=== PATIENT | female | born 1945 | race Caucasian/White ===

== ENCOUNTER → 2016-06-12 | Outpatient (CLI) | payer OTHER, MEDICARE ==
[2015-07-11 14:42] VITALS: BP 122/63
[~2016-06-12] MED LIST: ACET-704 PO; ASPI81TA50 PO; FURO20TA3 PO; GABA600T2 PO; INSU100V13 SQ; INSU100V31 SQ; IOHEXOL 300 MG/ML 75 ML VIAL. IV ONE; LISI2.5T PO; MECL25TA3 PO; MULT1TAB52 PO; NITR0.4T6 SL; OMEG1CAP38 PO; OMEP20TA PO; SIMV40TA3 PO; SULF1TAB24 PO; TIZA4TAB PO; VIT1TABL32 PO
[2016-06-12 14:06] LABS: CALCIUM 9.2 mg/dL (8.5-10.1); CREATININE 1.5 mg/dL (0.6-1.0); GFR 34.1; POTASSIUM 4.5 mmol/L (3.5-5.1)
== END | disposition home or self-care (01) ==
LOC: CT 13:11
PROVIDERS: ATTEND Internal Medicine Cardiovascular Disease
DX: I73.9 Peripheral vascular disease, unspecified (principal)
CPT/HCPCS: 36415; 80048; Q9967

== ENCOUNTER → 2016-06-16 | Outpatient (CLI) | payer OTHER, MEDICARE ==
[2015-07-11 14:42] VITALS: BP 122/63
[~2016-06-16] MED LIST changes: +SODIUM BICARBONATE IVF 150 MEQ in IV STERILE WATER 1,000 ML IV ONE
--- NOTE | 2016-06-16 14:37 | RAD ---
CTA of the abdomen, pelvis and both lower extremities, 06/16/2016: History: Nonhealing right foot wound Multidetector CT imaging was performed from the lower abdomen down through the feet following an IV bolus injection of iodinated contrast material. Multiplanar reconstructions were produced as well as 3-D MIP images of the major arteries. There is mild calcific plaquing of the distal abdominal aorta and common iliac arteries without evidence of aneurysm or high-grade stenosis. The common, internal and external iliac arteries are widely patent. There is mild calcific plaquing at the right common femoral artery level. There is more extensive atherosclerotic plaquing in the right superficial femoral and popliteal arteries. There is moderate focal stenosis of the proximal right superficial femoral artery and in the proximal right popliteal artery. In the right lower leg there are moderate scattered plaques with occlusion of the anterior tibial artery at the mid to lower calf level. The posterior tibial artery is patent down through the ankle level. The peroneal artery is patent but very tiny distally. On the left, there is mild calcific plaquing of the common femoral artery level. There are moderate scattered plaques in the superficial femoral and popliteal arteries. There is mild narrowing of the left superficial femoral and popliteal arteries at multiple levels without evidence of high-grade focal stenosis. There are scattered plaques in the lower leg arteries. The left anterior tibial artery is patent down to the ankle level. The dorsalis pedis artery is not well delineated. The left tibioperoneal trunk is poorly defined with high-grade stenosis versus occlusion. The posterior tibial artery in the left lower leg is occluded. The left peroneal artery also appears to be occluded. Incidental CT findings include the presence of moderate degenerative change at both knees with bilateral joint effusions. There is moderate multilevel degenerative change in the lower lumbar spine. There are mild scattered superficial varicosities in both lower legs. IMPRESSION: 1. Moderate generalized atherosclerotic plaquing. 2. No significant iliac or common femoral occlusive disease. 3. Mild to moderate scattered stenoses in the superficial femoral and popliteal arteries, worse on the right. 4. More extensive arterial occlusive disease in both lower legs with anterior tibial artery occlusion on the right and posterior tibial and peroneal artery occlusions on the left. PQRS Compliance Statement: One or more of the following individualized dose reduction techniques were utilized for this examination: 1. Automated exposure control 2. Adjustment of the mA and/or kV according to patient size 3. Use of iterative reconstruction technique
== END | disposition home or self-care (01) ==
LOC: CT 10:43
PROVIDERS: ATTEND Internal Medicine Cardiovascular Disease
DX: I35.1 Nonrheumatic aortic (valve) insufficiency (principal); I73.9 Peripheral vascular disease, unspecified; I77.1 Stricture of artery; I70.8 Atherosclerosis of other arteries; S91.301A Unspecified open wound, right foot, initial encounter; X58.XXXA Exposure to other specified factors, initial encounter; Y93.89 Activity, other specified; Y92.89 Other specified places as the place of occurrence of the external cause; Y99.8 Other external cause status
CPT/HCPCS: 75635; Q9967

== ENCOUNTER → 2017-11-20 | Outpatient (CLI) | payer OTHER, MEDICARE ==
[2015-07-11 14:42] VITALS: BP 122/63
[~2017-11-20] MED LIST changes: -IOHEXOL 300 MG/ML 75 ML VIAL. IV ONE; +NITR0.4T22 SL; -NITR0.4T6 SL; -OMEP20TA PO; +OMEP20TA8 PO; -SODIUM BICARBONATE IVF 150 MEQ in IV STERILE WATER 1,000 ML IV ONE
[2017-11-20 16:36] LABS: ALBUMIN 3.6 g/dL (3.4-5.0); ALBUMIN/GLOBULIN RATIO 0.9 (1.0-1.7); CALCIUM 9.9 mg/dL (8.5-10.1); CREATININE 1.5 mg/dL (0.6-1.0); POTASSIUM 4.8 mmol/L (3.5-5.1); TOTAL BILIRUBIN 0.7 mg/dL (0.2-1.0); TOTAL PROTEIN 7.6 g/dL (6.4-8.2)
== END | disposition home or self-care (01) ==
LOC: LAB 14:43
PROVIDERS: ATTEND Nurse Practitioner
DX: E78.5 Hyperlipidemia, unspecified (principal); I10 Essential (primary) hypertension; E11.9 Type 2 diabetes mellitus without complications; K21.9 Gastro-esophageal reflux disease without esophagitis; Z90.49 Acquired absence of other specified parts of digestive tract; Z90.710 Acquired absence of both cervix and uterus
CPT/HCPCS: 36415; 80053; 80061; 83036

== ENCOUNTER → 2018-01-05 | Outpatient (CLI) | payer OTHER, MEDICARE ==
[2015-07-11 14:42] VITALS: BP 122/63
[2018-01-05 12:12] LABS: ALBUMIN 3.5 g/dL (3.4-5.0); ALBUMIN/GLOBULIN RATIO 0.8 (1.0-1.7); CALCIUM 9.7 mg/dL (8.5-10.1); CREATININE 1.7 mg/dL (0.6-1.0); GFR 29.5; POTASSIUM 4.4 mmol/L (3.5-5.1); TOTAL BILIRUBIN 0.5 mg/dL (0.2-1.0); TOTAL PROTEIN 7.7 g/dL (6.4-8.2)
== END | disposition home or self-care (01) ==
LOC: LAB 11:33
PROVIDERS: ATTEND Specialist
DX: E78.00 Pure hypercholesterolemia, unspecified (principal)
CPT/HCPCS: 36415; 80053; 80061

== ENCOUNTER → 2018-01-13 | Outpatient (CLI) | payer OTHER, MEDICARE ==
[2015-07-11 14:42] VITALS: BP 122/63
[2018-01-13 15:32] LABS: CALCIUM 9.2 mg/dL (8.5-10.1); CREATININE 1.4 mg/dL (0.6-1.0); GFR 36.9; POTASSIUM 4.6 mmol/L (3.5-5.1)
== END | disposition home or self-care (01) ==
LOC: LAB 14:33
PROVIDERS: ATTEND Specialist
DX: E11.22 Type 2 diabetes mellitus with diabetic chronic kidney disease (principal); I12.9 Hypertensive chronic kidney disease with stage 1 through stage 4 chronic kidney disease, or unspecified chronic kidney disease; N18.3 Chronic kidney disease, stage 3 (moderate); Z79.4 Long term (current) use of insulin
CPT/HCPCS: 36415; 80048

== ENCOUNTER → 2018-02-19 | Outpatient (CLI) | payer OTHER, MEDICARE ==
[2015-07-11 14:42] VITALS: BP 122/63
== END | disposition home or self-care (01) ==
LOC: LAB 12:37
PROVIDERS: ATTEND Specialist
DX: E78.00 Pure hypercholesterolemia, unspecified (principal)
CPT/HCPCS: 80061

== ENCOUNTER → 2018-08-18 | Outpatient (CLI) | payer OTHER, MEDICARE ==
[2015-07-11 14:42] VITALS: BP 122/63
[~2018-08-18] MED LIST changes: -GABA600T2 PO; +GABA600T7 PO
--- NOTE | 2018-08-18 15:25 | RAD ---
Chest, 2 views, 08/18/2018: HISTORY: Congestive heart failure, heart and renal disease Comparison is made to a study from 07/11/2015. The heart is at the upper limits of normal in size. Coronary artery stents are evident. The pulmonary vascularity is normal. No pulmonary infiltrate is seen. There is no evidence of pleural fluid. There is accentuation of the normal thoracic kyphosis with multilevel degenerative change. IMPRESSION: No acute cardiopulmonary abnormality is detected. Electronically signed by: Tai Perkins MD (08/18/2018 3:22 PM) [facility]
== END | disposition home or self-care (01) ==
LOC: RAD 12:40
PROVIDERS: ATTEND Internal Medicine Cardiovascular Disease
DX: I13.0 Hypertensive heart and chronic kidney disease with heart failure and stage 1 through stage 4 chronic kidney disease, or unspecified chronic kidney disease (principal); N18.3 Chronic kidney disease, stage 3 (moderate); I50.9 Heart failure, unspecified; M47.894 Other spondylosis, thoracic region; M40.294 Other kyphosis, thoracic region; Z95.5 Presence of coronary angioplasty implant and graft
CPT/HCPCS: 71046

== ENCOUNTER 2018-09-10 09:15 | Inpatient (IN) | payer OTHER, MEDICARE ==
[~2018-09-10] VITALS: Ht 162.6 cm; Wt 86.8 kg
--- NOTE | 2018-09-10 09:40 | PHYS DOC ---
Past History Past Medical History: Anxiety, CAD, Constipation, Diabetes, GERD, Hypertension, MA, Renal Disease Past Surgical History: No Surgical History, Appendectomy, Cholecystectomy, Hysterectomy Alcohol Use: None Drug Use: None Adult General Chief Complaint Chief Complaint: CHEST PAIN HPI HPI Patient is a 73-year-old female who presents with report of dizziness and chest discomfort. Patient states chest discomfort started yesterday and has been intermittent since onset. She states is not actually of pain but states it feels like pressure in her chest. She rates it at a 3 out of 10. She denies any nausea, vomiting or diaphoresis. Patient does indicate that she is also had some dizziness that she states that makes her feel like she is going to fall over when she stands up. Patient does indicate that she has had 2 have some assista nce when she gets up and walks starting this morning. She states that she did have some dizziness yesterday but took a meclizine and was able to get around okay. She states that this morning symptoms are worse. She denies any headache or lateralizing weakness.[] Review of Systems Review of Systems Constitutional: Denies fever or chills [] Respiratory: Denies cough or shortness of breath [] Cardiovascular: No additional information not addressed in HPI [] GI: Denies abdominal pain, nausea, vomiting or diarrhea [] Integument: Denies rash or skin lesions [] Neurologic: Denies headache, focal weakness or sensory changes. Complains of dizziness. [] All other systems were reviewed and found to be within normal limits, except as documented in this note. Current Medications Current Medications Current Medications Medications (Trade) Dose Ordered Sig/Aguilar Start Time Stop Time Status Last Admin Dose Admin Meclizine HCl (Antivert) 25 mg PRN Q6HRS PRN 09/10/18 09:45 Allergies Allergies Allergies Coded Allergies Type Severity Reaction Last Updated Verified erythromycin base Allergy Intermediate Nausea 06/16/16 Yes Physical Exam Physical Exam Constitutional: Well developed, well nourished, no acute distress, non-toxic appearance. [] HENT: Normocephalic, atraumatic, bilateral external ears normal, oropharynx moist, no oral exudates, nose normal. [] Eyes: PERRLA, EOMI, conjunctiva normal, no discharge. [] Neck: Normal range of motion, no tenderness, supple, no stridor. [] Cardiovascular: Mildly bradycardic rate with regular rhythm[] Lungs & Thorax: Bilateral breath sounds clear to auscultation [] Abdomen: Bowel sounds normal, soft, no tenderness. [] Skin: Warm, dry, no erythema, no rash. [] Extremities: No tenderness, no cyanosis, no clubbing, ROM intact. [] Neurologic: Alert and oriented X 3, no focal deficits noted. [] EKG EKG EKG demonstrates sinus bradycardia with a rate of 51.[] Radiology/Procedures Radiology/Procedures [] Impressions: PROCEDURE: PORTABLE CHEST 1V Portable chest, 09/10/2018: HISTORY: Chest pain Comparison is made to a study from 08/18/2018. The heart is at the upper limits of normal in size. The depth of inspiration is suboptimal. No pulmonary consolidation is seen. There is no evidence of pleural fluid. IMPRESSION: 1. Borderline cardiomegaly. 2. Suboptimal depth of inspiration. Electronically signed by: Tai Perkins MD (09/10/2018 9:45 AM) [facility] PROCEDURE: CT HEAD WO CONTRAST CT HEAD WO CONTRAST Indication: Dizziness. Exposure: One or more of the following individualized dose reduction techniques were utilized for this examination: 1. Automated exposure control 2. Adjustment of the mA and/or kV according to patient size 3. Use of iterative reconstruction technique. Technique: Standard imaging without intravenous contrast. No evidence of acute intracranial hemorrhage, mass effect, midline shift or abnormal extra-axial fluid collection. Cuellar-white matter distinction is intact. Ventricles and sulci appear symmetric. Orbits unremarkable. No evidence of notable scalp swelling. Visualized sinuses are clear. No evidence of acute skull abnormality. IMPRESSION: No evidence of acute intracranial hemorrhage or mass effect. Electronically signed by: Edwin Manuel MD (09/10/2018 11:15 AM) [id number] DICTATED AND SIGNED BY: EDWIN MANUEL MD DATE: 09/10/18 1115 Course & Med Decision Making Course & Med Decision Making Pertinent Labs and Imaging studies reviewed. (See chart for details) [] Dragon Disclaimer Dragon Disclaimer This electronic medical record was generated, in whole or in part, using a voice recognition dictation system. Departure Departure: Impression: Primary Impression: Chest pain Additional Impression: Dizziness Disposition: 09 ADMITTED INPATIENT Admitting Physician: My Sorenson Condition: GOOD Referrals: JIE SMITH (PCP) Problem Qualifiers Primary Impression: Chest pain Chest pain type: unspecified Qualified Codes: R07.9 - Chest pain, unspecified HARI STILES Jr. DO Sep 10, 2018 09:39
[2018-09-10] MEDS ORDERED: MECLIZINE 12.5 MG TABLET. PO PRN (09:45)
--- NOTE | 2018-09-10 09:48 | RAD ---
Portable chest, 09/10/2018: HISTORY: Chest pain Comparison is made to a study from 08/18/2018. The heart is at the upper limits of normal in size. The depth of inspiration is suboptimal. No pulmonary consolidation is seen. There is no evidence of pleural fluid. IMPRESSION: 1. Borderline cardiomegaly. 2. Suboptimal depth of inspiration. Electronically signed by: Tai Perkins MD (09/10/2018 9:45 AM) [facility]
[2018-09-10 10:02] LABS: BASO # 0.1 x10^3/uL (0.0-0.2); BASO % 1 % (0-3); EOS # 0.2 x10^3/uL (0.0-0.7); EOS % 4 % (0-3); HEMATOCRIT 45.4 % (36.0-47.0); HEMOGLOBIN 14.9 g/dL (12.0-15.5); LYMPH # 1.2 x10^3/uL (1.0-4.8); LYMPH % 27 % (24-48); MEAN CORPUSCULAR HEMOGLOBIN 30 pg (25-35); MEAN CORPUSCULAR HGB CONC 33 g/dL (31-37); MEAN CORPUSCULAR VOLUME 92 fL (79-100); MONO # 0.5 x10^3/uL (0.0-1.1); MONO % 10 % (0-9); NEUT # 2.7 x10^3uL (1.8-7.7); NEUT % 58 % (31-73); PLATELET COUNT 153 x10^3/uL (140-400); RED BLOOD COUNT 4.95 x10^6/uL (3.50-5.40); RED CELL DISTRIBUTION WIDTH 13.8 % (11.5-14.5); WHITE BLOOD COUNT 4.7 x10^3/uL (4.0-11.0)
[2018-09-10 10:17] LABS: ALBUMIN 3.1 g/dL (3.4-5.0); ALBUMIN/GLOBULIN RATIO 0.8 (1.0-1.7); CALCIUM 9.3 mg/dL (8.5-10.1); CREATININE 1.4 mg/dL (0.6-1.0); GFR 36.8; MAGNESIUM 2.1 mg/dL (1.8-2.4); POTASSIUM 4.5 mmol/L (3.5-5.1); TOTAL BILIRUBIN 0.4 mg/dL (0.2-1.0); TOTAL PROTEIN 6.9 g/dL (6.4-8.2)
--- NOTE | 2018-09-10 10:26 | EKG ---
[address] [address] Test Date: 2018-09-10 Test Time: 09:24:17 Pat Name: MARLEN SHIN Department: Room: Gender: F Rehabilitation Specialist: : [id number] Requested By: HARI STILES Order Number: [id number] Reading MD: Measurements Intervals [place] Rate: 51 P: 34 [place]: 174 QRS: -16 QRSD: 86 T: 18 QT: 474 QTc: 439 Interpretive Statements SINUS RHYTHM LEFTWARD AXIS QRS(T) CONTOUR ABNORMALITY CONSIDER ANTEROSEPTAL MYOCARDIAL DAMAGE POSSIBLY ABNORMAL ECG RI6.01 No previous ECG available for comparison
--- NOTE | 2018-09-10 11:17 | RAD ---
CT HEAD WO CONTRAST Indication: Dizziness. Exposure: One or more of the following individualized dose reduction techniques were utilized for this examination: 1. Automated exposure control 2. Adjustment of the mA and/or kV according to patient size 3. Use of iterative reconstruction technique. Technique: Standard imaging without intravenous contrast. No evidence of acute intracranial hemorrhage, mass effect, midline shift or abnormal extra-axial fluid collection. Cuellar-white matter distinction is intact. Ventricles and sulci appear symmetric. Orbits unremarkable. No evidence of notable scalp swelling. Visualized sinuses are clear. No evidence of acute skull abnormality. IMPRESSION: No evidence of acute intracranial hemorrhage or mass effect. Electronically signed by: Edwin Manuel MD (09/10/2018 11:15 AM) [id number]
[2018-09-10] MEDS ORDERED: MORPHINE SULFATE 2 MG/ML DISP.SYRIN. IV PRN (11:30)
[2018-09-10] MEDS ORDERED: ONDANSETRON PF 4 MG/2 ML VIAL. IV PRN (11:30)
[2018-09-10] MEDS ORDERED: ATOR40TA59 PO (11:43)
[2018-09-10] MEDS ORDERED: INSU100V37 SQ (11:43)
[2018-09-10] MEDS ORDERED: METO-239 PO (11:43)
[2018-09-10] MEDS ORDERED: INSU100V11 IJ (11:43)
[2018-09-10 13:05] VITALS: BP 152/71
--- NOTE | 2018-09-10 13:18 | NUR ---
Patient Gaby Johnson admitted to [facility]. Pt alert and oriented, complains of dizziness and tinnitus for about 2-3 months, dizziness worsening. Had difficulty getting up out of bed at home. Complains of chest pain for about 2-3 weeks, had stress test about 3 weeks ago through [facility] and was ok, per pt. Will request records. [facility].
--- NOTE | 2018-09-10 13:43 | NUR ---
Cardiology consult called in to Tayler BROWNE.
[2018-09-10] MEDS: GABAPENTIN 300 MG CAPSULE. PO SCH ×2 (13:51→20:40)
[2018-09-10] MEDS ORDERED: ACETAMINOPHEN/CODEINE 300/30MG TABLET PO PRN (14:00)
[2018-09-10] MEDS ORDERED: GABAPENTIN 400 MG CAPSULE. PO SCH (14:00)
[2018-09-10 15:20] VITALS: BP 152/71
[2018-09-10 15:21] VITALS: BP_SYST 153; BP_SYST 164; BP_DIAS 74; BP_DIAS 78
[2018-09-10] MEDS ORDERED: POLYETHYLENE GLYCOL 3350 17 GM PACKET. PO PRN (15:30)
--- NOTE | 2018-09-10 17:04 | HP ---
ADMIT DATE: HISTORY OF PRESENT ILLNESS: The patient is a 73-year-old female patient who came to the Emergency Room complaining of being dizzy and chest discomfort. She stated that her chest discomfort started yesterday and has been intermittent since onset. She states that she is not actually in pain, feels like pressure in her chest that she rates about at 3/10 in severity. She denies any nausea, vomiting or diaphoresis. She had had also some dizziness that feels like as if she is going to fall over when she stands up. She stated that she has to have some assistance when she gets up and walks starting this morning. She stated that she did have some dizziness yesterday, took meclizine and was able to get around okay; however, her symptoms have worsened this morning. She denied things are spinning around. Denied any nausea or vomiting. Denied any fall. She does have tinnitus in both ears. She apparently had had a stress test done about [address] Alvarez' office and apparently was normal. She was extensively investigated in the Emergency Room and she has had a CT scan of the head which showed that there is no evidence of acute intracranial hemorrhage, mass effect, midline shift or abnormal extraaxial fluid collection. Cuellar-white matter distinction is intact. Ventricles and sulci appear symmetric. Orbits unremarkable. No evidence of notable scalp swelling. Visualized sinuses are clear. No evidence of acute skull abnormality. No evidence of acute intracranial hemorrhage or mass effect. Has had lab work that was essentially unremarkable. Her D-dimer was high at 0.72, however, her kidney function is abnormal with a creatinine of 1.4 and estimated GFR was 36.8. Her chest x-ray showed borderline cardiomegaly which showed no pulmonary consolidation, no evidence of pleural fluid or pneumothorax. The patient was admitted for further evaluation and treatment. We did consult the safety person as well as the neurologist. PAST MEDICAL HISTORY: Significant for bronchial asthma, type 2 diabetes mellitus, hypertension, hyperlipidemia, coronary artery disease, status post myocardial infarction for which she has a PCI with stent deployment x 3. She has stage 3 chronic kidney disease, generalized osteoarthritis. PAST SURGICAL HISTORY: Significant for bilateral cataract extraction, appendectomy, total abdominal hysterectomy, bilateral salpingo-oophorectomy, cholecystectomy, PCI with stent deployment, colonoscopy and polypectomy. ALLERGIES: SHE IS ALLERGIC TO ERYTHROMYCIN. MEDICATIONS: She is currently on following medications: She is on tizanidine 4 mg every 8 hours, atorvastatin calcium 40 mg at bedtime, omega-3 fatty acid or fish oil 1000 mg twice a day, metoprolol succinate 12.5 mg daily. She is on lisinopril 1.25 mg daily, aspirin 81 mg once a day, acetaminophen with codeine 1-2 tablets twice a day. She is on gabapentin 600 mg 3 times a day, furosemide 20 mg daily, omeprazole 20 mg daily. She is on Tresiba 10 units subcutaneous daily. She is on Novolin R 10 units daily. FAMILY HISTORY: She has 2 brothers and 1 sister, younger and healthy. Her father at age of 69 because of alcoholism and type 2 diabetes. Mother at the age of 87 because of pneumonia. SOCIAL HISTORY: She is , has 2 daughters. She never smoked, does not drink alcohol. She used to works as a real property evaluator. REVIEW OF SYSTEMS: The patient has had bilateral cataract extraction, but denied any glaucoma or macular degeneration. Denied any earache. She does have tinnitus, but denied any sensorineural deafness. Denied any nosebleeds. She has stuffy nose, but denied any postnasal drip. Denied any sore throat, sore tongue, toothache, hoarseness of voice or difficulty swallowing. Denied any nausea, vomiting, diarrhea, but has severe constipation. Denied any hematemesis, melena or hematochezia. Denied any dysuria, frequency or hematuria. Denied any chest pain, shortness of breath, orthopnea, paroxysmal nocturnal dyspnea. Denied any cough, phlegm or hemoptysis. Denied any chills, rigors or fever. Did complain of dizziness and lightheadedness, but denied any vertigo. PHYSICAL EXAMINATION: GENERAL: On examining her, she looked well and was clearly in no apparent respiratory distress. No pallor, jaundice, cyanosis or thyromegaly. No jugular venous distension. No lower limb edema. VITAL SIGNS: Her heart rate was 48, blood pressure was 152/71, temperature was 97.8, respiratory rate was 18 and oxygen saturation was 99%. HEAD, EYES, EARS, NOSE, AND THROAT: Showed normocephalic, atraumatic. NECK: Supple. HEART: Showed normal first and second heart sounds. No gallop, rub or murmur. CHEST: Clear to auscultation. No crepitation or rhonchi. ABDOMEN: Distended, soft, nontender. No guarding or rigidity. No organomegaly. All hernial orifices intact. Bowel sounds normal. NEUROLOGIC: She is awake, alert, responding appropriately. All cranial nerves intact. She moves extremities without difficulty. LABORATORY DATA: Her lab work showed a serum sodium 141, potassium 4.5, chloride 105, bicarbonate 30, anion gap of 6, BUN 20, creatinine 1.4, estimated GFR was 36 mL per minute. Her glucose was 142. Calcium was 9.3, magnesium 2.1. Total bilirubin, AST, ALT, alkaline phosphatase were normal. Her total protein was 6.9, albumin 3.1. Her D-dimer slightly elevated at 0.62. Her white cell count was 4700, hemoglobin 15, hematocrit 45, MCV 92, and platelet count of 153,000 with normal manual differential. Her chest x-ray showed borderline cardiomegaly, suboptimal depth of inspiration and CT scan of the head showed no evidence of acute intracranial hemorrhage, mass effect, midline shift or abnormal extraaxial fluid collection. Cuellar-white matter distinction is intact. The ventricles and sulci appear symmetrical, orbits unremarkable. No evidence of notable scalp swelling. Visualized sinuses are clear. No evidence of acute skull abnormality. ASSESSMENT AND PLAN: In summary, this is a 73-year-old female patient who is coming with a complaint of being feeling dizzy. She said that she has some measurement of her blood pressure that goes down to a systolic pressure of 60 only. She is on very small dose of lisinopril at 1.25 and Toprol-XL 12.5 mg once a day. She has longstanding type 2 diabetes of more than 30 years. She has bilateral diabetic peripheral neuropathy in a stocking distribution. The patient stated that she cannot even drive anymore because she cannot feel her feet and she also stated that whenever she sits up from lying position, she has feeling of numbness in her back that normally resolves when she stands up and start walking. She denied any problem with her bladder. She controls her urine very well, but she has severe chronic constipation. She stated that she does not feel that things are spinning around when she stands up. Denied any nausea or vomiting. Denied any fall. Denied any worsening of her deafness. We did attempt to check her orthostatics and the patient was unable to stand enough to check her blood pressure standing; however, if blood pressure lying and sitting were within an acceptable range and there was no significant difference, my plan is to consult Dr. Harris and also to consult the safety person to assist with management of this lady. BABAR URIARTE MD DR: SUSANNE/aniyah JOB#: [id number] / [id number]
[2018-09-10] MEDS: ACETAMINOPHEN/CODEINE 300/30MG TABLET PO PRN ×2 (17:24→20:41)
[2018-09-10] MEDS ORDERED: GABAPENTIN 300 MG CAPSULE. PO ONE (17:30)
[2018-09-10] MEDS: INSULIN LISPRO 300 UNITS/3 ML INSULN.PEN. SQ SCH (17:34)
--- NOTE | 2018-09-10 17:47 | NUR ---
RN has paged Dr Harris x3 to notify of consult, no response. Will continue trying.
--- NOTE | 2018-09-10 18:03 | PDOC2 ---
CONSULT Date of Admission DATE: 09/10/18 TIME: 17:52 Reason for Consult: Dizziness and chest pressure Referring Physician: Dr. Sorenson. Chief Complaint Dizziness Source: Chart review, Patient Problem List Problems Medical Problems: (1) Chest pain Status: Acute (2) Dizziness Status: Acute History of Present Illness The patient is a 73 year old female who came to the ER for episodes of dizziness and chest pressure. The symptoms had been increasing for 1 to 2 days. In the ER, her EKG showed a sinus rhythm and no acute ischemic changes. She has remained in sinus rhythm overnight. Initial troponin was normal. She has a history of CAD and reports a stress test by Dr. Alvarez three weeks ago was normal. She is more comfortable this afternoon. Cardiovascular: CAD, HTN, MO, hyperipidemia, Other (PAD) GI: GERD Renal/: Chronic renal insuff Endocrine: Diabetes Past Surgical History: Appendectomy, Cholecystectomy, Hysterectomy Family History: Hypertension Smoke: No ALCOHOL: none Current Medications Current Medications Meclizine HCl (Antivert) 25 mg PRN Q6HRS PRN PO DIZZINESS; Start 09/10/18 at 09:45 Ondansetron HCl (Zofran) 4 mg PRN Q4HRS PRN IV NAUSEA/VOMITING; Start 09/10/18 at 11:30; Stop 09/11/18 at 11:29 Morphine Sulfate (Morphine 2mg Syringe) 2 mg PRN Q2HR PRN IV PAIN; Start 09/10/18 at 11:30; Stop 09/11/18 at 11:29 Gabapentin (Neurontin) 1,200 mg TID PO ; Start 09/10/18 at 14:00; Stop 09/10/18 at 14:00; Status DC Insulin Human Regular (HumuLIN R VIAL) 10 unit DAILY SQ ; Start 09/11/18 at 09:00; Stop 09/11/18 at 09:00; Status DC Non-Formulary Medication (Aspirin (Aspir-Low)) 81 mg DAILY PO ; Start 09/11/18 at 09:00; Stop 09/11/18 at 09:00; Status DC Atorvastatin Calcium (Lipitor) 40 mg QHS PO ; Start 09/10/18 at 21:00 Insulin Glargine (Lantus) 10 units DAILY SQ ; Start 09/11/18 at 09:00 Pantoprazole Sodium (Protonix) 40 mg DAILY PO ; Start 09/11/18 at 09:00 Gabapentin (Neurontin) 600 mg TID PO Last administered on 09/10/18at 13:51; Start 09/10/18 at 14:00 Insulin Human Lispro (HumaLOG) 10 units TIDWMEALS SQ Last administered on 09/10/18at 17:34; Start 09/10/18 at 17:00 Aspirin (Aspirin Enteric Coated) 81 mg QHS PO ; Start 09/10/18 at 21:00 Acetaminophen/ Codeine Phosphate (Tylenol #3) 1 tab PRN BID PRN PO PAIN Last administered on 09/10/18at 17:24; Start 09/10/18 at 14:00 Fish Oil (Fish Oil) 1,000 mg BID PO ; Start 09/10/18 at 21:00 Acetaminophen/ Codeine Phosphate (Tylenol #3) 2 tab PRN BID PRN PO PAIN; Start 09/10/18 at 14:00 Polyethylene Glycol (miraLAX) 17 gm PRN DAILY PRN PO CONSTIPATION; Start 09/10/18 at 15:30 Gabapentin (Neurontin) 600 mg 1X ONCE PO Last administered on 09/10/18at 17:33; Start 09/10/18 at 17:30; Stop 09/10/18 at 17:31; Status DC Active Scripts Active Reported Atorvastatin Calcium 40 Mg Tablet 1 Tab PO QHS Tresiba (Insulin Degludec) 100 Unit/1 Ml Vial 10 Unit SQ DAILY Novolin R (Insulin Regular, Human) 100 Unit/1 Ml Vial 10 Unit IJ DAILY Metoprolol Succinate ( Xl ) (Metoprolol Succinate) 25 Mg Tab.er.24h 12.5 Mg PO DAILY Tizanidine Hcl (Tizanidine HCl) 4 Mg Tablet 4 Mg PO Q8HRS Omeprazole 20 Mg Tablet. 20 Mg PO DAILY [place] 3 Fish Oil Softgel ([place]-3 Fatty Acids/Fish Oil) 1 Each Capsule. 1,000 Mg PO BID Lisinopril 2.5 Mg Tablet 1.25 Mg PO DAILY Gabapentin 600 Mg Tablet 600 Mg PO TID Furosemide 20 Mg Tablet 20 Mg PO Aspir-Low (Aspirin) 81 Mg Tablet. 81 Mg PO QHS Tylenol With Codeine #3 Tablet (Acetaminophen With Codeine) 1 Each Tablet 1-2 Each PO BID PRN Allergies: Coded Allergies: erythromycin base (Verified Allergy, Intermediate, Nausea, 3/27/17) General: YES: Fatigue Cardiovascular: yes: Chest Pain, Lt [place] General: No acute distress HEENT: Atraumatic Lungs: Clear to auscultation Heart: Regular rate Abdomen: Normal bowel sounds VITALS Vital Signs Date Time Temp Pulse Resp B/P (MAP) Pulse Ox O2 Delivery O2 Flow Rate FiO2 09/10/18 17:24 99 09/10/18 15:21 48 153/74 (100) 09/10/18 13:05 97.8 18 09/10/18 09:32 Room Air Labs Laboratory Tests Test 09/10/18 09:25 09/10/18 13:18 White Blood Count 4.7 x10^3/uL (4.0-11.0) Red Blood Count 4.95 x10^6/uL (3.50-5.40) Hemoglobin 14.9 g/dL (12.0-15.5) Hematocrit 45.4 % (36.0-47.0) Mean Corpuscular Volume 92 fL (79-100) Mean Corpuscular Hemoglobin 30 pg (25-35) Mean Corpuscular Hemoglobin Concent 33 g/dL (31-37) Red Cell Distribution Width 13.8 % (11.5-14.5) Platelet Count 153 x10^3/uL (140-400) Neutrophils (%) (Auto) 58 % (31-73) Lymphocytes (%) (Auto) 27 % (24-48) Monocytes (%) (Auto) 10 % (0-9) Eosinophils (%) (Auto) 4 % (0-3) Basophils (%) (Auto) 1 % (0-3) Neutrophils # (Auto) 2.7 x10^3uL (1.8-7.7) Lymphocytes # (Auto) 1.2 x10^3/uL (1.0-4.8) Monocytes # (Auto) 0.5 x10^3/uL (0.0-1.1) Eosinophils # (Auto) 0.2 x10^3/uL (0.0-0.7) Basophils # (Auto) 0.1 x10^3/uL (0.0-0.2) D-Dimer (Danna) 0.72 mg/L (0.00-0.50) Sodium Level 141 mmol/L (136-145) Potassium Level 4.5 mmol/L (3.5-5.1) Chloride Level 105 mmol/L (98-107) Carbon Dioxide Level 30 mmol/L (21-32) Anion Gap 6 (6-14) Blood Urea Nitrogen 20 mg/dL (7-20) Creatinine 1.4 mg/dL (0.6-1.0) Estimated GFR (Cockcroft-Gault) 36.8 BUN/Creatinine Ratio 14 (6-20) Glucose Level 142 mg/dL (70-99) Calcium Level 9.3 mg/dL (8.5-10.1) Magnesium Level 2.1 mg/dL (1.8-2.4) Total Bilirubin 0.4 mg/dL (0.2-1.0) Aspartate Amino Transf (AST/SGOT) 22 U/L (15-37) Alanine Aminotransferase (ALT/SGPT) 25 U/L (14-59) Alkaline Phosphatase 79 U/L (46-116) Troponin I Quantitative < 0.017 ng/mL (0-0.055) UE-Bkw-S-Type Natriuretic Peptide 198 pg/mL (0-124) Total Protein 6.9 g/dL (6.4-8.2) Albumin 3.1 g/dL (3.4-5.0) Albumin/Globulin Ratio 0.8 (1.0-1.7) Glucose (Fingerstick) 104 mg/dL (70-99) Images CXR. No acute changes. CT head. No acute changes. Assessment/Plan 1. Dizziness. Improved. Rhythm stable. Would continue medications and increase activity. Possible outpt monitor. 2. Chest pressure. Resolved. History of CAD. No acute EKG changes and initial troponin normal. Followed by DR. Alvarez with a recent normal stress test. Monitor troponin. Follow up with Dr. Alvarez. 3. HTN. Controlled on present medications. 4. DM. As per the primary service. 5. CKD. Monitoring lab. 6. HLD. Check morning lab. Thank you for allowing us to participate in the care of your patient. JENNIFER YUEN MD Sep 10, 2018 18:03
[2018-09-10 19:29] VITALS: BP 99/51
[2018-09-10] MEDS ORDERED: tiZANidine 4 MG TABLET. PO PRN (20:15)
[2018-09-10] MEDS: OMEGA-3 FATTY ACIDS/FISH OIL 1,000 MG CAPSULE. PO SCH (20:41)
[2018-09-10] MEDS ORDERED: ASPIRIN ENTERIC COATED 81 MG TABLET.DR. PO SCH (21:00)
[2018-09-10] MEDS ORDERED: ATORVASTATIN CALCIUM 20 MG TABLET PO SCH (21:00)
[2018-09-10 23:14] VITALS: BP 102/66
--- NOTE | 2018-09-11 01:03 | CONS ---
DATE OF CONSULTATION: NEUROLOGY CONSULTATION REFERRING PHYSICIAN: Dr. Sorenson. REASON FOR CONSULTATION: Severe dizziness. HISTORY OF PRESENT ILLNESS: This is a 73-year-old right-handed female who was admitted through Emergency Room after she presented with 1-month intermittent dizziness described as unsteadiness and losing balance forward mainly when she stands up. The patient feels as going to fall, but she has not had any fall. The symptoms have worsened in the last 2 days and dizziness worsened by changing body position from lying to sitting then from sitting to standing. She does not describe vertigo, but unsteadiness. The unsteadiness is worse upon standing up. She denies nausea, vomiting, dysarthria, dysphagia or true vertigo. The patient has recently noticed ringing in the ears, described as buziness. She also presented to Emergency Room with chest pain described as discomfort. EKG and troponin levels revealed no abnormalities; however, the patient has had history of coronary artery disease, required 3 stent deployments and recently she had a stress test study as an outpatient and revealed no abnormalities. The patient was seen by Cardiology service and no more cardiac recommendation or workup. Initial nonenhanced head CT scan revealed no evidence of acute intracranial process. PAST MEDICAL HISTORY: Significant for hypertension, hyperlipidemia, coronary artery disease, status post 3 stent deployments, chronic low back pain, stage 3 chronic kidney disease, osteoarthritis, diabetes mellitus type 2 and asthma. PAST SURGICAL HISTORY: Significant for bilateral cataract extraction, abdominal hysterectomy, appendectomy, colonoscopy with polypectomy and PCI x 3 along with cholecystectomy. SOCIAL HISTORY: The patient lives with her grandson. She denies smoking, alcohol drinking, or illicit drug use. She has 2 daughters. She is a . FAMILY HISTORY: Father at age of 69 from alcoholism and diabetes mellitus type 2 complications. Mother at the age of 87 from pneumonia. CURRENT HOME MEDICATIONS: Tizanidine 4 mg every 8 hours, Lipitor 40 mg at bedtime, fish oil, metoprolol 12.5 daily, lisinopril 1.25 mg daily, aspirin 81 mg daily, Tylenol p.r.n. for pain, gabapentin 600 mg 3 times daily for neuropathy, furosemide 20 mg daily and omeprazole 20 mg daily, insulin regular 10 units daily. Tresiba 10 units subcutaneously daily. ALLERGIES: ERYTHROMYCIN. REVIEW OF SYSTEMS: A 10-point review of system was performed as mentioned above in history of present illness and consistent with ringing in the ears, imbalance and dizziness upon standing or changing body positions from lying to sitting. PHYSICAL EXAMINATION: GENERAL: Well-developed, well-nourished female, not in acute distress. She weighs 86 kilos. VITAL SIGNS: Afebrile, blood pressure 99/51, respiratory rate 20, pulse is 48, oxygen saturation 98.3 on room air. HEENT: Normocephalic, atraumatic, otherwise unremarkable. NECK: Supple. Negative for carotid bruit, lymphadenopathy or thyromegaly. LUNGS: Clear to A and P. CARDIOVASCULAR: Regular rhythm, normal S1, S2. There is no S3, S4, or murmur. ABDOMEN: Soft. Bowel sounds positive. EXTREMITIES: Negative for cyanosis, clubbing or pitting edema, but positive for varicose vein. NEUROLOGICAL EXAM: MENTAL STATUS: The patient is alert and oriented x 3. The speech is fluent. There is no language dysfunction. Memory, judgment, and abstract thinking are normal. The patient denies hallucination or delusion. CRANIAL NERVES: Visual blair are full. The pupils are reactive to light and accommodation. The extraocular movements are intact. There is no nystagmus. There is no facial motor or sensory deficit. Hearing is intact bilaterally. The palate is elevated symmetrically. Sternocleidomastoid muscles are powerful bilaterally. The patient shrugs her shoulders symmetrically, protrudes her tongue in the midline without fasciculation or atrophy. MOTOR: No focal muscle bulk was seen. Tone is normal. The strength is 5/5 throughout. SENSORY EXAMINATION: Revealed diminished pinprick and light touch senses in glove and stocking distributions. DEEP TENDON REFLEXES: Symmetric and active with absent Achilles responses bilaterally. GAIT: The stance is unsteady. Romberg sign is positive. LABORATORY DATA: CBC revealed white blood cells of 4.7 thousand, hemoglobin 14.9, hematocrit 45.4, platelet count 153,000. Chemistry revealed sodium of 141, potassium 4.5, chloride 105, CO2 of 30, BUN 20, creatinine 1.4, glucose 142, calcium 9.3. Liver enzymes are normal. Troponin level is normal. NBP is high at 198. IMPRESSION: 1. Dizziness described as unsteady stance and more prominent towards the night. She does not have any fall. The etiology is multifactorial. Severe peripheral neuropathy in the lower extremities and chronic lower back pain, possible radiculopathy may have contributed to the current symptoms. 2. The patient may have some kind of positional vertigo without spinning and aggravated by changing body positions as described above. 3. Multiple medical problems include diabetes mellitus, stage 3 kidney disease, peripheral neuropathy, hypertension, hyperlipidemia, GERD. RECOMMENDATIONS: 1. Continue with meclizine on p.r.n. basis to reduce anxiety associated with the current symptoms. 2. We will arrange for EMG/NCS of the upper and lower extremities to be done on an outpatient basis. 3. Physical therapy evaluation. 4. Continue with current care initiated by Dr. Sorenson. M Eve SCANLON MD DR: DIEGO/aniyah JOB#: [id number] / [id number]
[2018-09-11 06:15] VITALS: BP 110/70
[2018-09-11 06:41] LABS: CALCIUM 9.1 mg/dL (8.5-10.1); CREATININE 1.3 mg/dL (0.6-1.0); POTASSIUM 4.5 mmol/L (3.5-5.1)
[2018-09-11] MEDS: GABAPENTIN 300 MG CAPSULE. PO SCH ×2 (07:48→14:29)
[2018-09-11] MEDS: OMEGA-3 FATTY ACIDS/FISH OIL 1,000 MG CAPSULE. PO SCH (07:48)
[2018-09-11 07:51] VITALS: BP 116/71
[2018-09-11 07:52] VITALS: BP_SYST 110; BP_SYST 112; BP_DIAS 71; BP_DIAS 74
[2018-09-11] MEDS: INSULIN LISPRO 300 UNITS/3 ML INSULN.PEN. SQ SCH ×2 (08:09→12:48)
[2018-09-11] MEDS ORDERED: INSULIN GLARGINE 300 UNITS/3 ML INSULN.PEN. SQ SCH (09:00)
[2018-09-11] MEDS ORDERED: INSULIN REGULAR 100 UNIT/ML 3ML VIAL. SQ SCH (09:00)
[2018-09-11] MEDS ORDERED: NON FORMULARY ITEM (Aspirin (Aspir-Low) 81 MG) PO SCH (09:00)
[2018-09-11] MEDS ORDERED: PANTOPRAZOLE 40 MG TABLET. PO SCH (09:00)
[2018-09-11 11:03] VITALS: BP 124/72
[2018-09-11] MEDS ORDERED: POLYVINYL ALCOHOL 1.4% OPHTH SOLUTION 15ML BOTTLE. OU SCH (14:00)
[2018-09-11 14:31] VITALS: BP 111/65
--- NOTE | 2018-09-11 15:18 | NUR ---
Patient d/c home with home health services. Patients IV D/C'd, tele monitor removed. Prescription for Meclizine 25mg PRN Q6 hours called into [facility] pharmacy. Patient is accompanied family at time of D/C.
--- NOTE | 2018-09-11 19:08 | DS ---
DATE OF DISCHARGE: 09/11/2018 HOSPITAL COURSE: The patient is a 73-year-old female patient who was admitted with a complaint of intermittent dizziness described as unsteadiness and losing balance forward mainly when she stands up, she feels as going to fall, but she has not had any falls, symptoms have worsened in the last 2 days. The dizziness is worse with changing body position from lying to sitting and from sitting to standing. She does not describe vertigo, but unsteadiness. The unsteadiness is worse when standing up. Denied any nausea, vomiting, dysarthria, dysphagia or true vertigo. She has noted sensation of ringing in her ears described as buzziness. She also complained of chest pain described as discomfort. EKG and troponins have revealed no abnormalities. However, the patient has had history of coronary artery disease requiring [address] scan revealed no evidence of any acute intracranial process. She was started on meclizine and that helped her symptoms. She was seen by Dr. Harris who thinks that her dizziness is probably multifactorial including severe peripheral neuropathy in the lower extremities and chronic lower back pain, possible radiculopathy may have contributed to current symptoms. She also has some kind of positional vertigo without spinning and aggravated by changing body position as described. She felt better today with meclizine and a decision was made to discharge her home with home health and to follow with Dr. Harris for an outpatient electromyography and nerve conduction studies of the upper and lower extremities to be done as an outpatient. PHYSICAL EXAMINATION: GENERAL: When I saw her this afternoon, she looked well and was clearly in no apparent respiratory distress, pale, no jaundice, cyanosis, or thyromegaly. No jugular venous distension. No limb edema. VITAL SIGNS: His heart rate was 51, blood pressure was 124/72, temperature was 97.7, respiratory rate was 20, and oxygen saturation was 96%. HEAD, EYES, EARS, NOSE AND THROAT: Showed normocephalic, atraumatic. NECK: Supple. HEART: Showed normal first and second heart sounds. No gallop or murmur. CHEST: Clear to auscultation. No crepitation or rhonchi. ABDOMEN: Distended, soft, nontender. NEUROLOGIC: She is awake, alert, responding appropriately. All cranial nerves intact. EXTREMITIES: She moves extremities without difficulty. LABORATORY DATA: Her lab work this morning showed that her serum sodium was 145, potassium 4.5, chloride 107, bicarbonate 30, anion gap of 8, BUN 19, creatinine . Estimated GFR was 40 mL per minute. Her glucose was 109, calcium was 9.1. She has 2 sets of cardiac enzymes that were negative for myocardial ischemia. That ruled out myocardial infarction. Her serum triglycerides 148, total cholesterol 110, LDL was 37, VLDL was 29, HDL cholesterol was 44 and the ratio was 2. Her white cell count was 4700, hemoglobin 15, hematocrit 45, MCV 92, and platelet count of 153,000. DISCHARGE MEDICATIONS: She was discharged to continue on Tylenol #3 one tablet twice a day as needed for pain, aspirin 81 mg once a day, atorvastatin 40 mg at bedtime, furosemide 20 mg p.o. daily, gabapentin 600 mg 3 times a day. She is on Tresiba 10 units daily and regular insulin 10 units daily, lisinopril 1.25 mg daily, metoprolol 12.5 mg twice a day, omega-3 fatty acids 1000 mg twice a day, omeprazole 20 mg once a day and tizanidine 4 mg p.o. q.8 hours. FINAL DISCHARGE DIAGNOSES: 1. Dizziness, multifactorial, most likely due to severe peripheral diabetic neuropathy. 2. Benign positional vertigo. Other medical problems including type 2 diabetes mellitus, stage 3 kidney disease, peripheral neuropathy, hypertension, hyperlipidemia, gastroesophageal reflux disease. The patient will be discharged home with home health. BABAR URIARTE MD DR: SUSANNE/aniyah JOB#: [id number] / [id number]
[2018-09-11] MEDS ORDERED: DOCUSATE SODIUM 100 MG CAPSULE PO SCH (21:00)
--- NOTE | 2018-09-12 02:18 | PN ---
DATE: 09/11/2018 SUBJECTIVE: The patient continues to feel "wobbling" but no dizziness. She denies nausea, vomiting, chest pain, shortness of breath, palpitation, dysarthria or dysphagia. The patient also complains of chronic constipation and lower abdominal discomfort. OBJECTIVE: GENERAL: Well-developed, well-nourished female, not in acute distress. VITAL SIGNS: Blood pressure 124/72, respiratory rate 20, pulse is 51, temperature 97.7, oxygen saturation 96% on room air. HEENT: Normocephalic, atraumatic, otherwise unremarkable. NECK: Supple. Negative for carotid bruit, lymphadenopathy or thyromegaly. LUNGS: Clear to A and P. CARDIOVASCULAR: Regular rhythm. Normal S1, S2. ABDOMEN: Soft. Bowel sounds positive. EXTREMITIES: Negative for cyanosis, clubbing or pitting edema. NEUROLOGICAL EXAM: Mental Status: The patient is alert and oriented x 3. The speech is fluent. There is no language dysfunction, otherwise unremarkable. Cranial nerves are intact. There is no nystagmus. Motor examination: No focal muscle bulk was seen. The tone is normal. The strength is 5/5 throughout. Sensory examination revealed diminished pinprick and light touch senses in patchy distributions in stocking and glove distribution. Deep tendon reflexes were symmetric and active with absent Achilles responses bilaterally. Gait: The stance is steady, but the patient cannot walk without assistance or using a walker. IMPRESSION: 1. Unsteady stance probably multifactorial including severe peripheral neuropathy in the lower extremities versus lumbosacral radiculopathy. 2. Multiple medical problems include diabetes mellitus, hypertension, hyperlipidemia, stage 3 chronic kidney disease, gastroesophageal and peripheral neuropathy. RECOMMENDATIONS: 1. We will continue with current medical care initiated by Dr. Sorenson. Continue with meclizine p.r.n. 2. Await for abdominal CT. 3. Follow up in [facility] on an outpatient basis and arrange for EMG/NCS of the upper and lower extremities. M Eve SCANLON MD DR: DIEGO/aniyah JOB#: [id number] / [id number]
--- NOTE | 2018-09-12 05:06 | PN ---
DATE: SUBJECTIVE: The patient is sitting slightly propped up in bed, in no apparent distress. She said that her dizziness is much better after getting her meclizine; however, she does continue to not feel well. She has abdominal discomfort, especially in the epigastric area and has not had any bowel movement since last Thursday. OBJECTIVE: GENERAL: When I examined her this afternoon, she looked generally well and was clearly in no apparent respiratory distress. No pallor, jaundice, cyanosis or thyromegaly. No jugular venous distension. No lower limb edema. VITAL SIGNS: Her heart rate was 51, blood pressure was 124/72, temperature was 97.7, respiratory rate was 20 and oxygen saturation was 96% on room air. HEAD, EYES, EARS, NOSE AND THROAT: Showed normocephalic, atraumatic. NECK: Supple. HEART: Showed normal first and second heart sounds. No gallop, rub or murmur. CHEST: Clear to auscultation. No crepitation or rhonchi. ABDOMEN: Distended, soft with tenderness mostly in the epigastric area. There was no guarding or rigidity. No organomegaly. All hernial orifices intact. Bowel sounds normal. NEUROLOGIC: She was awake, alert, responding appropriately. All cranial nerves intact. She moved her extremities without difficulty. Her intake and output are incompletely recorded. LABORATORY DATA: Her lab work this morning showed serum sodium of 145, potassium 4.5, chloride 107, bicarbonate 30, anion gap of 8, BUN 19, creatinine 1.3, estimated GFR was 40 mL per minute, her glucose was 109, calcium was 9.1. Her serum triglycerides were 148, total cholesterol was 110, LDL cholesterol was 37, VLDL was 29, HDL was 44 and the ratio was 22. ASSESSMENT: In summary, this is a 73-year-old female patient who basically came with complaint of dizziness and unsteady stance, felt by Dr. Harris to be multifactorial including severe diabetic peripheral neuropathy in both lower extremities, chronic low back pain and possible radiculopathy may have contributed to the current symptoms. She also has some kind of positional vertigo without spinning and aggravated by changing body position. She has multiple medical problems includin. Type 2 diabetes mellitus. 2. Stage III kidney disease. 3. Diabetic peripheral neuropathy. 4. Hypertension. 5. Hyperlipidemia. 6. Gastroesophageal reflux disease. 7. Constipation. PLAN: My plan is to continue with meclizine as recommended, continue with physical and occupational therapy. I will arrange for her to have a CT scan of the abdomen and pelvis, continue with the artificial tears 3 times a day and Colace 100 mg daily at bedtime. BABAR URIARTE MD DR: SUSANNE/aniyah JOB#: [id number] / [id number]
== END 2018-09-11 15:28 | disposition home health service (06) | DRG 74 ==
LOC: ER 09:15 → 1 SOUTH 12:43
PROVIDERS: ADMIT Internal Medicine; ATTEND Internal Medicine
DX: E11.42 Type 2 diabetes mellitus with diabetic polyneuropathy (principal); M54.16 Radiculopathy, lumbar region; H81.10 Benign paroxysmal vertigo, unspecified ear; E11.22 Type 2 diabetes mellitus with diabetic chronic kidney disease; E78.5 Hyperlipidemia, unspecified; G89.29 Other chronic pain; H93.13 Tinnitus, bilateral; I12.9 Hypertensive chronic kidney disease with stage 1 through stage 4 chronic kidney disease, or unspecified chronic kidney disease; I25.10 Atherosclerotic heart disease of native coronary artery without angina pectoris; I25.2 Old myocardial infarction; J45.909 Unspecified asthma, uncomplicated; F41.9 Anxiety disorder, unspecified; M54.5 Low back pain; K21.9 Gastro-esophageal reflux disease without esophagitis; K59.09 Other constipation; M15.9 Polyosteoarthritis, unspecified; N18.3 Chronic kidney disease, stage 3 (moderate); Z82.49 Family history of ischemic heart disease and other diseases of the circulatory system; Z83.3 Family history of diabetes mellitus; Z90.710 Acquired absence of both cervix and uterus; Z95.5 Presence of coronary angioplasty implant and graft; Z98.41 Cataract extraction status, right eye; Z98.42 Cataract extraction status, left eye; Z90.49 Acquired absence of other specified parts of digestive tract; Z90.722 Acquired absence of ovaries, bilateral; Z88.8 Allergy status to other drugs, medicaments and biological substances
CPT/HCPCS: 36415; 70450; 71045; 80048; 80053; 80061; 82947; 83735; 83880; 84484; 85025; 85379; 93005; J1815; J8597; 99285-25

== ENCOUNTER → 2019-10-27 | Outpatient (CLI) | payer MEDICARE ==
[~2019-10-27] MED LIST changes: +ATOR40TA59 PO; +INSU100V11 IJ; +INSU100V37 SQ; +MECL-75 PO; -MECL25TA3 PO; +METO-239 PO; +MULT-445 PO; -MULT1TAB52 PO; +SIMV40TA18 PO; -SIMV40TA3 PO; -TIZA4TAB PO; +TIZA4TAB2 PO
[2019-10-27 15:54] LABS: BASO # 0.1 x10^3/uL (0.0-0.2); BASO % 1 % (0-3); EOS # 0.4 x10^3/uL (0.0-0.7); EOS % 6 % (0-3); HEMOGLOBIN 13.4 g/dL (12.0-15.5); LYMPH # 1.4 x10^3/uL (1.0-4.8); LYMPH % 22 % (24-48); MEAN CORPUSCULAR HEMOGLOBIN 27 pg (25-35); MEAN CORPUSCULAR HGB CONC 32 g/dL (31-37); MEAN CORPUSCULAR VOLUME 85 fL (79-100); MONO # 0.6 x10^3/uL (0.0-1.1); MONO % 9 % (0-9); NEUT # 4.1 x10^3uL (1.8-7.7); NEUT % 62 % (31-73); PLATELET COUNT 162 x10^3/uL (140-400); RED BLOOD COUNT 4.93 x10^6/uL (3.50-5.40); RED CELL DISTRIBUTION WIDTH 16.6 % (11.5-14.5); WHITE BLOOD COUNT 6.6 x10^3/uL (4.0-11.0)
[2019-10-27 16:05] LABS: ALBUMIN 2.9 g/dL (3.4-5.0); ALBUMIN/GLOBULIN RATIO 0.7 (1.0-1.7); ALK PHOS 121 U/L (46-116); ALT (SGPT) 21 U/L (14-59); ANION GAP 10 (6-14); AST (SGOT) 23 U/L (15-37); BLOOD UREA NITROGEN 22 mg/dL (7-20); BUN/CREATININE RATIO 16 (6-20); C REACTIVE PROTEIN 2.1 mg/L (0-3.3); CALCIUM 8.9 mg/dL (8.5-10.1); CARBON DIOXIDE 28 mmol/L (21-32); CHLORIDE 103 mmol/L (98-107); CREATININE 1.4 mg/dL (0.6-1.0); GFR 36.7; GLUCOSE 304 mg/dL (70-99); POTASSIUM 3.7 mmol/L (3.5-5.1); SODIUM 141 mmol/L (136-145); TOTAL BILIRUBIN 0.2 mg/dL (0.2-1.0); TOTAL PROTEIN 6.9 g/dL (6.4-8.2); VANC TR 16.3 mcg/mL (10.0-20.0)
== END | disposition home or self-care (01) ==
LOC: SPEC 15:26
PROVIDERS: ATTEND Specialist
DX: L97.529 Non-pressure chronic ulcer of other part of left foot with unspecified severity (principal); Z79.2 Long term (current) use of antibiotics
CPT/HCPCS: 36415; 80053; 80202; 85025; 86140

== ENCOUNTER → 2019-10-31 | Outpatient (CLI) | payer MEDICARE ==
[2019-10-31 16:15] LABS: ALBUMIN 2.9 g/dL (3.4-5.0); ALBUMIN/GLOBULIN RATIO 0.7 (1.0-1.7); ALK PHOS 119 U/L (46-116); ALT (SGPT) 21 U/L (14-59); ANION GAP 9 (6-14); AST (SGOT) 22 U/L (15-37); BLOOD UREA NITROGEN 24 mg/dL (7-20); BUN/CREATININE RATIO 16 (6-20); C REACTIVE PROTEIN 4.5 mg/L (0-3.3); CALCIUM 8.7 mg/dL (8.5-10.1); CARBON DIOXIDE 30 mmol/L (21-32); CHLORIDE 101 mmol/L (98-107); CREATININE 1.5 mg/dL (0.6-1.0); GFR 33.9; GLUCOSE 254 mg/dL (70-99); POTASSIUM 3.7 mmol/L (3.5-5.1); SODIUM 140 mmol/L (136-145); TOTAL BILIRUBIN 0.2 mg/dL (0.2-1.0)
[2019-10-31 16:19] LABS: VANC TR 30.6 mcg/mL (10.0-20.0)
[2019-10-31 16:26] LABS: BASO # 0.1 x10^3/uL (0.0-0.2); BASO % 1 % (0-3); EOS # 0.5 x10^3/uL (0.0-0.7); EOS % 8 % (0-3); HEMATOCRIT 40.6 % (36.0-47.0); HEMOGLOBIN 13.5 g/dL (12.0-15.5); LYMPH # 1.5 x10^3/uL (1.0-4.8); LYMPH % 27 % (24-48); MEAN CORPUSCULAR HEMOGLOBIN 28 pg (25-35); MEAN CORPUSCULAR HGB CONC 33 g/dL (31-37); MEAN CORPUSCULAR VOLUME 85 fL (79-100); MONO # 0.4 x10^3/uL (0.0-1.1); MONO % 7 % (0-9); NEUT # 3.3 x10^3uL (1.8-7.7); NEUT % 57 % (31-73); PLATELET COUNT 176 x10^3/uL (140-400); RED BLOOD COUNT 4.79 x10^6/uL (3.50-5.40); RED CELL DISTRIBUTION WIDTH 16.2 % (11.5-14.5); WHITE BLOOD COUNT 5.7 x10^3/uL (4.0-11.0)
== END | disposition home or self-care (01) ==
LOC: SPEC 15:36
PROVIDERS: ATTEND Specialist
DX: L97.529 Non-pressure chronic ulcer of other part of left foot with unspecified severity (principal); Z79.2 Long term (current) use of antibiotics
CPT/HCPCS: 36415; 80053; 80202; 85025; 86140

== ENCOUNTER → 2019-11-02 | Outpatient (CLI) | payer MEDICARE ==
[2019-11-02 09:16] LABS: VANC TR 10.9 mcg/mL (10.0-20.0)
== END | disposition home or self-care (01) ==
LOC: SPEC 08:45
PROVIDERS: ATTEND Specialist
DX: Z79.2 Long term (current) use of antibiotics (principal)
CPT/HCPCS: 36415; 80202

== ENCOUNTER → 2019-11-07 | Outpatient (CLI) | payer MEDICARE ==
[2019-11-07 16:20] LABS: BASO # 0.1 x10^3/uL (0.0-0.2); BASO % 1 % (0-3); EOS # 0.5 x10^3/uL (0.0-0.7); EOS % 7 % (0-3); HEMATOCRIT 39.6 % (36.0-47.0); HEMOGLOBIN 12.9 g/dL (12.0-15.5); LYMPH # 1.3 x10^3/uL (1.0-4.8); LYMPH % 20 % (24-48); MEAN CORPUSCULAR HEMOGLOBIN 28 pg (25-35); MEAN CORPUSCULAR HGB CONC 33 g/dL (31-37); MEAN CORPUSCULAR VOLUME 85 fL (79-100); MONO # 0.6 x10^3/uL (0.0-1.1); MONO % 9 % (0-9); NEUT # 4.3 x10^3uL (1.8-7.7); NEUT % 64 % (31-73); PLATELET COUNT 191 x10^3/uL (140-400); RED BLOOD COUNT 4.69 x10^6/uL (3.50-5.40); RED CELL DISTRIBUTION WIDTH 16.2 % (11.5-14.5); WHITE BLOOD COUNT 6.7 x10^3/uL (4.0-11.0)
[2019-11-07 16:28] LABS: ALK PHOS 112 U/L (46-116); BLOOD UREA NITROGEN 23 mg/dL (7-20); TOTAL BILIRUBIN 0.2 mg/dL (0.2-1.0); TOTAL PROTEIN 6.9 g/dL (6.4-8.2)
[2019-11-07 16:39] LABS: ALBUMIN 2.8 g/dL (3.4-5.0); ALBUMIN/GLOBULIN RATIO 0.7 (1.0-1.7); ALT (SGPT) 21 U/L (14-59); ANION GAP 7 (6-14); AST (SGOT) 19 U/L (15-37); BUN/CREATININE RATIO 14 (6-20); C REACTIVE PROTEIN 11.6 mg/L (0-3.3); CALCIUM 8.6 mg/dL (8.5-10.1); CARBON DIOXIDE 31 mmol/L (21-32); CHLORIDE 104 mmol/L (98-107); CREATININE 1.6 mg/dL (0.6-1.0); GFR 31.4; GLUCOSE 236 mg/dL (70-99); POTASSIUM 3.5 mmol/L (3.5-5.1); SODIUM 142 mmol/L (136-145); VANC TR 9.7 mcg/mL (10.0-20.0)
== END | disposition home or self-care (01) ==
LOC: SPEC 15:56
PROVIDERS: ATTEND Specialist
DX: L97.529 Non-pressure chronic ulcer of other part of left foot with unspecified severity (principal); Z79.2 Long term (current) use of antibiotics
CPT/HCPCS: 36415; 80053; 80202; 85025; 86140

== ENCOUNTER → 2019-11-14 | Outpatient (CLI) | payer MEDICARE ==
[2019-11-14 16:56] LABS: ALBUMIN 2.7 g/dL (3.4-5.0); ALBUMIN/GLOBULIN RATIO 0.7 (1.0-1.7); ALK PHOS 107 U/L (46-116); ALT (SGPT) 19 U/L (14-59); ANION GAP 6 (6-14); AST (SGOT) 21 U/L (15-37); BLOOD UREA NITROGEN 20 mg/dL (7-20); BUN/CREATININE RATIO 13 (6-20); C REACTIVE PROTEIN 5.7 mg/L (0-3.3); CALCIUM 8.4 mg/dL (8.5-10.1); CARBON DIOXIDE 32 mmol/L (21-32); CHLORIDE 103 mmol/L (98-107); CREATININE 1.5 mg/dL (0.6-1.0); GFR 33.9; GLUCOSE 185 mg/dL (70-99); POTASSIUM 3.6 mmol/L (3.5-5.1); SODIUM 141 mmol/L (136-145); TOTAL BILIRUBIN 0.3 mg/dL (0.2-1.0); TOTAL PROTEIN 6.7 g/dL (6.4-8.2); VANC TR 19.8 mcg/mL (10.0-20.0)
[2019-11-14 17:05] LABS: BASO # 0.1 x10^3/uL (0.0-0.2); BASO % 1 % (0-3); EOS # 0.4 x10^3/uL (0.0-0.7); EOS % 6 % (0-3); HEMATOCRIT 39.2 % (36.0-47.0); HEMOGLOBIN 12.7 g/dL (12.0-15.5); LYMPH # 1.5 x10^3/uL (1.0-4.8); LYMPH % 23 % (24-48); MEAN CORPUSCULAR HEMOGLOBIN 27 pg (25-35); MEAN CORPUSCULAR HGB CONC 32 g/dL (31-37); MEAN CORPUSCULAR VOLUME 84 fL (79-100); MONO # 0.5 x10^3/uL (0.0-1.1); MONO % 8 % (0-9); NEUT % 63 % (31-73); PLATELET COUNT 203 x10^3/uL (140-400); RED BLOOD COUNT 4.64 x10^6/uL (3.50-5.40); RED CELL DISTRIBUTION WIDTH 16.5 % (11.5-14.5); WHITE BLOOD COUNT 6.3 x10^3/uL (4.0-11.0)
== END | disposition home or self-care (01) ==
LOC: SPEC 16:24
PROVIDERS: ATTEND Specialist
DX: Z45.2 Encounter for adjustment and management of vascular access device (principal); Z79.2 Long term (current) use of antibiotics
CPT/HCPCS: 36415; 80053; 80202; 85025; 86140

== ENCOUNTER → 2020-02-06 | Outpatient (CLI) | payer MEDICARE ==
[2020-02-06 11:27] LABS: ALBUMIN 2.3 g/dL (3.4-5.0); ALBUMIN/GLOBULIN RATIO 0.6 (1.0-1.7); CALCIUM 8.9 mg/dL (8.5-10.1); CREATININE 1.4 mg/dL (0.6-1.0); GFR 36.7; POTASSIUM 3.9 mmol/L (3.5-5.1); TOTAL BILIRUBIN 0.4 mg/dL (0.2-1.0); TOTAL PROTEIN 6.1 g/dL (6.4-8.2)
== END ==
LOC: SPEC 10:31
PROVIDERS: ATTEND Specialist
DX: Z45.2 Encounter for adjustment and management of vascular access device (principal); Z79.2 Long term (current) use of antibiotics
CPT/HCPCS: 36415; 80053

== ENCOUNTER 2020-08-14 11:34 | Emergency (ER) | payer MEDICARE ==
[~2020-08-14] VITALS: Ht 162.6 cm; Wt 94.3 kg
[2020-08-14] MEDS ORDERED: NEOMY/BACITR/POLYMYXIN OINT PACKET. TP ONE (12:00)
[2020-08-14 12:15] LABS: BASO % 1 % (0-3); EOS # 0.2 x10^3/uL (0.0-0.7); EOS % 3 % (0-3); HEMATOCRIT 40.7 % (36.0-47.0); HEMOGLOBIN 13.4 g/dL (12.0-15.5); LYMPH # 1.3 x10^3/uL (1.0-4.8); LYMPH % 26 % (24-48); MEAN CORPUSCULAR HEMOGLOBIN 30 pg (25-35); MEAN CORPUSCULAR HGB CONC 33 g/dL (31-37); MEAN CORPUSCULAR VOLUME 92 fL (79-100); MONO # 0.4 x10^3/uL (0.0-1.1); MONO % 8 % (0-9); NEUT % 62 % (31-73); PLATELET COUNT 127 x10^3/uL (140-400); RED BLOOD COUNT 4.41 x10^6/uL (3.50-5.40); RED CELL DISTRIBUTION WIDTH 16.3 % (11.5-14.5); WHITE BLOOD COUNT 4.9 x10^3/uL (4.0-11.0)
[2020-08-14 12:28] LABS: ANION GAP 9 (6-14); BLOOD UREA NITROGEN 15 mg/dL (7-20); BUN/CREATININE RATIO 11 (6-20); CALCIUM 8.3 mg/dL (8.5-10.1); CARBON DIOXIDE 28 mmol/L (21-32); CHLORIDE 108 mmol/L (98-107); CREATININE 1.4 mg/dL (0.6-1.0); GFR 36.6; GLUCOSE 133 mg/dL (70-99); POTASSIUM 3.7 mmol/L (3.5-5.1); SODIUM 145 mmol/L (136-145)
--- NOTE | 2020-08-14 12:38 | PHYS DOC ---
Past History Past Medical History: ND, Renal Failure Past Surgical History: Appendectomy, Cholecystectomy, Hysterectomy, Other Additional Past Surgical Histo: lower right foot. Cardiac stents X3 Smoking: Non-smoker Alcohol Use: None Drug Use: None General Adult EDM: Chief Complaint: MECHANICAL FALL HPI: HPI: 75-year-old female presents via EMS with report of mechanical trip and fall at home. Patient reports history of foot ulceration for which she follows with wound care and infectious disease and requires use of a walking boot. Patient reports she tripped and subsequently fell striking her head on bed frame. Patient with abrasion and swelling to right scalp. Patient reports she is currently on Eliquis. Reports some headache associated after the fall. Denies neck pain. Denies epistaxis. Patient also injured right wrist with skin tear noted by EMS. Patient denies any chest pain. Denies fever. Denies dysuria or hematuria. Review of Systems: Review of Systems: Constitutional: Denies fever or chills Eyes: Denies redness or eye pain HENT: Denies nasal congestion or sore throat Respiratory: Denies cough or shortness of breath Cardiovascular: Denies chest pain or palpitations GI: Denies abdominal pain, nausea, or vomiting : Denies dysuria or hematuria Musculoskeletal: Denies neck pain; reports pain to right wrist Integument: Denies rash; reports forehead contusion and abrasions to face and right wrist Neurologic: Denies headache, focal weakness or sensory changes Complete systems were reviewed and found to be within normal limits, except as documented in this note. Current Medications: Current Meds: Current Medications Medications (Trade) Dose Ordered Sig/Aguilar Start Time Stop Time Status Last Admin Dose Admin Neomycin/ Polymyxin/ Bacitracin (Triple Antibiotic Ointment) 1 pkt 1X ONCE 08/14/20 12:00 08/14/20 12:06 DC Allergies: Allergies: Allergies Coded Allergies Type Severity Reaction Last Updated Verified erythromycin base Allergy Intermediate Nausea 06/16/16 Yes Physical Exam: PE: Constitutional: Well developed, well nourished, no acute distress, non-toxic appearance HENT: Normocephalic, atraumatic, TMs clear, nares clear without septal hematoma Eyes: PERRL, EOMI, conjunctiva normal, no discharge Neck: Normal range of motion, no tenderness, supple Lungs & Thorax: No respiratory distress, equal chest rise and fall Abdomen: Soft, no tenderness, pelvis stable and nontender Skin: Warm, dry, no erythema, abrasion to dorsum of right wrist, facial abrasions to right forehead and bridge of nose also noted Back: No midline tenderness, no CVA tenderness Extremities: Right wrist tenderness, ROM intact, no deformity, radial pulse on right +2 Neurologic: Alert and oriented X 3, normal motor function, normal sensory function, no focal deficits noted, cerebellar function intact Psychologic: Affect normal, judgment normal Current Patient Data: Labs: Laboratory Tests Test 08/14/20 12:00 White Blood Count 4.9 x10^3/uL (4.0-11.0) Red Blood Count 4.41 x10^6/uL (3.50-5.40) Hemoglobin 13.4 g/dL (12.0-15.5) Hematocrit 40.7 % (36.0-47.0) Mean Corpuscular Volume 92 fL (79-100) Mean Corpuscular Hemoglobin 30 pg (25-35) Mean Corpuscular Hemoglobin Concent 33 g/dL (31-37) Red Cell Distribution Width 16.3 % (11.5-14.5) H Platelet Count 127 x10^3/uL (140-400) L Neutrophils (%) (Auto) 62 % (31-73) Lymphocytes (%) (Auto) 26 % (24-48) Monocytes (%) (Auto) 8 % (0-9) Eosinophils (%) (Auto) 3 % (0-3) Basophils (%) (Auto) 1 % (0-3) Neutrophils # (Auto) 3.0 x10^3uL (1.8-7.7) Lymphocytes # (Auto) 1.3 x10^3/uL (1.0-4.8) Monocytes # (Auto) 0.4 x10^3/uL (0.0-1.1) Eosinophils # (Auto) 0.2 x10^3/uL (0.0-0.7) Basophils # (Auto) 0.0 x10^3/uL (0.0-0.2) Sodium Level 145 mmol/L (136-145) Potassium Level 3.7 mmol/L (3.5-5.1) Chloride Level 108 mmol/L (98-107) H Carbon Dioxide Level 28 mmol/L (21-32) Anion Gap 9 (6-14) Blood Urea Nitrogen 15 mg/dL (7-20) Creatinine 1.4 mg/dL (0.6-1.0) H Estimated GFR (Cockcroft-Gault) 36.6 BUN/Creatinine Ratio 11 (6-20) Glucose Level 133 mg/dL (70-99) H Calcium Level 8.3 mg/dL (8.5-10.1) L Magnesium Level Pending Total Bilirubin Pending Aspartate Amino Transferase (AST) Pending Alanine Aminotransferase (ALT) Pending Alkaline Phosphatase Pending Creatine Kinase Pending Creatine Kinase MB (Mass) Pending Creatine Kinase MB Relative Index Pending Troponin I Quantitative < 0.017 ng/mL (0-0.055) Total Protein Pending Albumin Pending Albumin/Globulin Ratio Pending Vital Signs: Vital Signs Date Time Temp Pulse Resp B/P (MAP) Pulse Ox O2 Delivery O2 Flow Rate FiO2 08/14/ 11:38 98.1 67 16 156/63 (94) 98 Room Air EKG: EKG: @1229 Sinus bradycardia at 56bpm, NO ST elevation, QRS 86ms, QT/QTc 470/456ms, nonspecific t wave inversion III Radiology/Procedures: Radiology/Procedures: PROCEDURE: CT HEAD AND CERVICAL SPINE WO & MAXIOFACIAL WO EXAM: Head CT without contrast; maxillofacial bone CT without contrast; cervical spine CT without contrast. HISTORY: Pain and swelling status post fall. TECHNIQUE: Computed tomographic images of the head, maxillofacial bones and cervical spine were obtained without contrast. *One or more of the following individualized dose reduction techniques were utilized for this examination: 1. Automated exposure control. 2. Adjustment of the mA and/or kV according to patient size. 3. Use of iterative reconstruction technique. COMPARISON: 03/24/2007. FINDINGS: Head: There is no intracranial hemorrhage. There is no mass effect or midline shift. There is no hydrocephalus. The esparza-white matter differentiation pattern is intact. There is no suspicious calvarial lesion. The mastoid air cells are clear. Maxillofacial bones: No displaced fracture is seen. There is a small inferior right frontal scalp soft tissue hematoma. There is evidence of lens surgery. There is a small right maxillary sinus mucous retention cyst. The ostiomeatal units are patent. There is rightward nasal septal deviation. The temporoma ndibular joints are intact. Cervical spine: There is mild multilevel listhesis. There is degenerative endplate remodeling at all levels, predominantly C5-C6 and C6-C7. There is disc space narrowing and vacuum phenomenon at C5-C6 and C6-C7. There is multilevel facet arthropathy. There is a lytic lesion with irregular sclerotic margins within the clivus measuring approximately 3.4 cm in maximum dimension. There is no associated clavicle expansion or extraosseous soft tissue component. There is calcified pa nnus surrounding the dens. The comminution of degenerative changes results in moderate left foraminal stenosis at C5-C6 and moderate right foraminal stenosis at C6-C7. There is a heterogeneous right thyroid lobe containing a calcification and possible small nodules. The lung apices are unremarkable. IMPRESSION: 1. Small inferior right frontal scalp soft tissue hematoma. There is no acute intracranial finding or evidence of acute maxillofacial bone or cervical spine trauma. 2. Multilevel degenerative change involving the cervical spine, resulting in stenosis as described above. 3. Lytic lesion with irregular sclerotic margins within the clivus measuring approximately 3.4 cm. This is present on a study performed 03/24/2007. This benign etiology or low-grade neoplastic etiology. There is no associated clival expansion or soft tissue lesion component. This can be better assessed with MRI if there is clinical concern. Electronically signed by: Debbie Rogers MD (08/14/2020 12:44 PM) [id number] PROCEDURE: WRIST 3V RIGHT EXAM: Right wrist, 3 views. HISTORY: Pain and bruising. Fall. COMPARISON: None. FINDINGS: 3 views of the right wrist are obtained. There is no acute fracture, dislocation or subluxation. There is deformity of the distal radial metaphysis likely due to the sequela of a healed fracture. There is first carpal metacarpal joint space narrowing, subchondral sclerosis and spurring. There is also joint space narrowing and degenerative subchondral cyst formation involving the second through fourth metacarpophalangeal joints. IMPRESSION: No acute osseous finding. 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 Electronically signed by: Debbie Rogers MD (08/14/2020 12:47 PM) [id number] Heart Score: C/O Chest Pain: N/A Course & Med Decision Making: Course & Med Decision Making Pertinent Labs and Imaging studies reviewed. (See chart for details) Patient presents with report of mechanical trip and fall at home. Patient with facial contusion and abrasions. Patient also noted to have significant abrasion and contusion to right wrist. CT head/maxillofacial/cervical spine obtained without acute fracture or internal bleeding. Notation of previously seen lytic lesion to clivus which has been stable since 2007 noted. Right wrist x-ray also without acute fracture or dislocation. Wounds cleaned and dressed. Pain addressed. EKG stable. Labs obtained and posted to chart. UA ordered but patient unable to provide sample. Patient denies any symptoms. UA therefore canceled. Patient stable for discharge with outpatient follow-up with PCP. A copy of CT results provided to patient and daughter to give to PCP for future reevaluation of previously seen lytic lesion. Discussed findings and plan with patient and her daughter, who acknowledge understanding and agreement. Aston Disclaimer: Aston Disclaimer: This electronic medical record was generated, in whole or in part, using a voice recognition dictation system. Departure Departure: Impression: Primary Impression: Fall Qualified Codes: W19.XXXA - Unspecified fall, initial encounter Additional Impressions: Facial contusion Qualified Codes: S00.83XA - Contusion of other part of head, initial encounter Multiple abrasions Contusion of wrist, right Qualified Codes: S60.211A - Contusion of right wrist, initial encounter Lytic lesion of bone on x-ray Disposition: 01 HOME / SELF CARE / HOMELESS Condition: STABLE Referrals: JIE SMITH (PCP) Patient Instructions: Abrasion, [id number], Contusion, [id number], Facial or Scalp Contusion, [id number], Fall Prevention and Home Safety, [id number] Additional Instructions: Do not soak your wound. You may shower. Clean wound daily with soap and water. Change dressing 2 times daily. Use over the counter antibiotic ointment with each dressing change. Ice to area of discomfort 20 minutes on then leave off next 20 minutes. Repeat several times daily for the next few days. Take previously prescribed pain medication as needed. Please give copy of CT results to your doctor for future re-evaluation of abnormal chronic finding. SOHEILA RODRIGUEZ DO August 14, 2020 12:38
--- NOTE | 2020-08-14 12:41 | EKG ---
[address] [address] Test Date: 2020-08-14 Test Time: 12:29:41 Pat Name: MARLEN SHIN Department: Room: Gender: F [employer]: DRE : 1945 Requested By: SOHEILA RODRIGUEZ Order Number: [id number] Reading MD: Measurements Intervals [place] Rate: 56 P: 41 MA: 176 QRS: -14 QRSD: 86 T: 8 QT: 470 QTc: 456 Interpretive Statements SINUS RHYTHM LEFTWARD AXIS OTHERWISE NORMAL ECG RI6.02 No previous ECG available for comparison
[2020-08-14 12:43] LABS: ALBUMIN 2.1 g/dL (3.4-5.0); ALBUMIN/GLOBULIN RATIO 0.5 (1.0-1.7); ALK PHOS 121 U/L (46-116); ALT (SGPT) 39 U/L (14-59); AST (SGOT) 42 U/L (15-37); TOTAL BILIRUBIN 0.6 mg/dL (0.2-1.0); TOTAL PROTEIN 6.4 g/dL (6.4-8.2)
--- NOTE | 2020-08-14 12:46 | RAD ---
EXAM: Head CT without contrast; maxillofacial bone CT without contrast; cervical spine CT without con trast. HISTORY: Pain and swelling status post fall. TECHNIQUE: Computed tomographic images of the head, maxillofacial bones and cervical spine were obtai grover without contrast. *One or more of the following individualized dose reduction techniques were utilized for this examina tion: 1. Automated exposure control. 2. Adjustment of the mA and/or kV according to patient size. 3. Use of iterative reconstruction technique. COMPARISON: 03/24/2007. FINDINGS: Head: There is no intracranial hemorrhage. There is no mass effect or midline shift. There is no hydr ocephalus. The esparza-white matter differentiation pattern is intact. There is no suspicious calvarial lesion. The mastoid air cells are clear. Maxillofacial bones: No displaced fracture is seen. There is a small inferior right frontal scalp sof t tissue hematoma. There is evidence of lens surgery. There is a small right maxillary sinus mucous r etention cyst. The ostiomeatal units are patent. There is rightward nasal septal deviation. The tempo romandibular joints are intact. Cervical spine: There is mild multilevel listhesis. There is degenerative endplate remodeling at all levels, predominantly C5-C6 and C6-C7. There is disc space narrowing and vacuum phenomenon at C5-C6 a nd C6-C7. There is multilevel facet arthropathy. There is a lytic lesion with irregular sclerotic margins within the clivus measuring approximately 3. 4 cm in maximum dimension. There is no associated clavicle expansion or extraosseous soft tissue comp onent. There is calcified pannus surrounding the dens. The comminution of degenerative changes results in moderate left foraminal stenosis at C5-C6 and mode rate right foraminal stenosis at C6-C7. There is a heterogeneous right thyroid lobe containing a calc ification and possible small nodules. The lung apices are unremarkable. IMPRESSION: 1. Small inferior right frontal scalp soft tissue hematoma. There is no acute intracranial finding or evidence of acute maxillofacial bone or cervical spine trauma. 2. Multilevel degenerative change involving the cervical spine, resulting in stenosis as described ab ove. 3. Lytic lesion with irregular sclerotic margins within the clivus measuring approximately 3.4 cm. Th is is present on a study performed 03/24/2007. This benign etiology or low-grade neoplastic etiology. T here is no associated clival expansion or soft tissue lesion component. This can be better assessed w ith MRI if there is clinical concern. Electronically signed by: Debbie Rogers MD (08/14/2020 12:44 PM) [id number]
--- NOTE | 2020-08-14 12:49 | RAD ---
EXAM: Right wrist, 3 views. HISTORY: Pain and bruising. Fall. COMPARISON: None. FINDINGS: 3 views of the right wrist are obtained. There is no acute fracture, dislocation or subluxa tion. There is deformity of the distal radial metaphysis likely due to the sequela of a healed fractu re. There is first carpal metacarpal joint space narrowing, subchondral sclerosis and spurring. There is also joint space narrowing and degenerative subchondral cyst formation involving the second throu gh fourth metacarpophalangeal joints. IMPRESSION: No acute osseous finding. 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 Electronically signed by: Debbie Rogers MD (08/14/2020 12:47 PM) [id number]
[2020-08-14] MEDS ORDERED: GABAPENTIN 100 MG CAPSULE. PO ONE (13:15)
[2020-08-14] MEDS ORDERED: ACETAMINOPHEN/CODEINE 300/30MG TABLET PO ONE (13:15)
[2020-08-14 14:21] VITALS: BP 149/60
== END 2020-08-14 14:19 | disposition home or self-care (01) ==
LOC: ER 11:34
DX: S00.83XA Contusion of other part of head, initial encounter (principal); S60.211A Contusion of right wrist, initial encounter; S00.31XA Abrasion of nose, initial encounter; M89.8X9 Other specified disorders of bone, unspecified site; N19 Unspecified kidney failure; I25.2 Old myocardial infarction; Z88.1 Allergy status to other antibiotic agents; W01.0XXA Fall on same level from slipping, tripping and stumbling without subsequent striking against object, initial encounter; Y93.89 Activity, other specified; Y92.89 Other specified places as the place of occurrence of the external cause; Y99.8 Other external cause status
CPT/HCPCS: 36415; 70450; 70486; 72125; 73110; 80053; 82553; 83735; 84484; 85025; 93005; 99285-25